=== PATIENT | female | born 1965 | race American Indian/Alaskan Native ===

== ENCOUNTER 2018-01-26 13:22 | Emergency (ER) | payer MEDICAID ==
--- NOTE | 2018-01-26 14:31 | C.PDOC ---
History Of Present Illness 52 y/o female with no known med problems c/o one month of left hip pain that radiates to groin, 2 weeks of right shoulder pain and one week of bilateral eye discomfort and blurred vision. pt with no trauma or injuries. pt has not tried any otc meds for pain. pt has not seen a doctor in many years. pt used to wear corrective lenses but lost them a long time ago. Time Seen by Provider: 01/26/18 13:55 Chief Complaint (Nursing): Lower Extremity Problem/Injury History Per: Patient History/Exam Limitations: no limitations Onset/Duration Of Symptoms: Days (from 1 oweek to one month) Current Symptoms Are (Timing): Still Present Severity: Mild Past Medical History Reviewed: Historical Data, Nursing Documentation, Vital Signs Vital Signs: Last Vital Signs Temp 98.1 F 01/26/18 13:44 Pulse 92 H 01/26/18 13:44 Resp 18 01/26/18 13:44 BP 108/72 01/26/18 13:44 Pulse Ox 99 01/26/18 13:44 - Medical History PMH: No Chronic Diseases Other Surgeries: hysterectomy Family History: States: Unknown Family Hx - Social History Hx Tobacco Use: No Hx Alcohol Use: No Hx Substance Use: No - Immunization History Hx Tetanus Toxoid Vaccination: No Hx Influenza Vaccination: No Hx Pneumococcal Vaccination: No Review Of Systems Constitutional: Negative for: Fever, Chills Eyes: Positive for: Pain, Vision Change. Negative for: Conjunctivae Inflammation, Eyelid Inflammation, Redness ENT: Negative for: Ear Pain Cardiovascular: Negative for: Chest Pain Respiratory: Negative for: Cough, Shortness of Breath Gastrointestinal: Negative for: Nausea, Vomiting, Abdominal Pain Musculoskeletal: Positive for: Shoulder Pain, Back Pain Skin: Negative for: Rash Neurological: Negative for: Weakness, Numbness Physical Exam - Physical Exam Appears: Non-toxic, No Acute Distress Skin: Warm, Dry, No Pale, No Rash Head: Atraumatic, Normacephalic Eye(s): bilateral: Normal Inspection, PERRL, EOMI Ear(s): Bilateral: Normal Oral Mucosa: Moist Neck: No Midline Cervical Tenderness, No Paracervical Tenderness, Supple, Other (tedner to right trapezius muscle) Chest: Symmetrical, No Deformity, No Tenderness Cardiovascular: Rhythm Regular, No Murmur Respiratory: No Decreased Breath Sounds, No Wheezing Gastrointestinal/Abdominal: Bowel Sounds, Soft, No Tenderness Back: No Vertebral Tenderness Extremity: Normal ROM, No Tenderness, No Pedal Edema, No Calf Tenderness, Other (mild left sciatic notch tenderness and left groin tenderness. ) Pulses: Left Dorsalis Pedis: Normal, Right Dorsalis Pedis: Normal Neurological/Psych: Oriented x3, Normal Speech, Normal Cognition, Normal Cranial Nerves, Normal Motor, Normal Sensation ED Course And Treatment O2 Sat by Pulse Oximetry: 99 Medical Decision Making Medical Decision Making: pt with multiple medical complaints; txed with nsaids in ed. d/c with muscle relaxant and nsaids with pmd and ophthalmology f/u Disposition Counseled Patient/Family Regarding: Diagnosis, Need For Followup, Rx Given - Disposition Referrals: [facility] [Outside] [facility] [Outside] Leander Harper MD [Staff Provider] - Disposition: HOME/ ROUTINE Disposition Time: 14:49 Condition: GOOD Additional Instructions: Please follow up with Primary care doctor or in medical clinic; you need to get a full annual exam, referral for colonoscopy, mammogram, cancellation clerk check up, Pap smear, Also follow up with Dr Harper, eye doctor. IF any trouble making these appointments, call [facility] for assistance. Prescriptions: Cyclobenzaprine [Cyclobenzaprine HCl] 10 mg PO Q8 #9 tab Ibuprofen [Motrin] 600 mg PO TID #30 tab Instructions: Groin Strain (DC), Muscle Strain (DC) Forms: [facility] (Yi), General Discharge Instructions - Clinical Impression Clinical Impression: Strain of right trapezius muscle, Strain of left inguinal muscle
[2018-01-27 00:23] VITALS: BP 108/72; PULSE 92; RESP 18; TEMP 98.1; O2SAT 99
== END 2018-01-26 15:06 | disposition home or self-care (01) ==
LOC: C.ER 13:22
DX: S16.1XXA Strain of muscle, fascia and tendon at neck level, initial encounter (principal); S39.011A Strain of muscle, fascia and tendon of abdomen, initial encounter; X58.XXXA Exposure to other specified factors, initial encounter; Y99.8 Other external cause status
CPT/HCPCS: 96372; 99284; J1885